=== PATIENT | male | born 1955 ===

== ENCOUNTER 2021-08-19 15:36 | Emergency (ER) | payer MEDICARE ==
[2021-08-19] MEDS ORDERED: Sodium Chloride 0.9% 10 ML Syringe FLUSH PRN (15:41)
[2021-08-19] MEDS ORDERED: Sodium Chloride 0.9% 1,000 ML IV ONE (15:41)
[2021-08-19 16:23] LABS: BICARBONATE,VENOUS 24 mmol/L (23-28); O2 DELIVERY DEVICE NASAL CANNULA; O2 SATURATION VENOUS 59 %; PCO2 VENOUS 39 mmHG (41-51); PO2 VENOUS 31 mmHG
[2021-08-19 16:31] LABS: ANION GAP 17.3 meq/L (7-15); CHLORIDE,CL 97 mmol/L (98-107); SODIUM,NA 137 mmol/L (136-145)
[2021-08-19 16:43] LABS: RESPIRATORY SYNCYTIAL VIR NAA NEGATIVE (NEGATIVE)
[2021-08-19 16:47] LABS: CORONAVIRUS COVID-19 NAA POSITIVE (NEGATIVE)
[2021-08-19] MEDS ORDERED: Iopamidol 755 Mg/ML 100 ML Bottle IVPUSH STA (16:51)
[2021-08-19] MEDS ORDERED: REMDESIVIR 200 MG in Sodium Chloride 0.9% 250 ML IV ONE (16:55)
[2021-08-19] MEDS ORDERED: Dexamethasone 10 MG/ML SDV IVPUSH ONE (16:55)
[2021-08-19] MEDS ORDERED: Albuterol/Ipratropium 3.0-0.5 MG/3 ML Neb Soln ONE (17:57)
[2021-08-19] MEDS ORDERED: LORazepam 2 MG/ML SDV IVPUSH ONE ×2 (18:09)
[2021-08-19] MEDS ORDERED: Morphine 2 MG/ML SYRINGE IVPUSH ONE (18:30)
[2021-08-19] MEDS ORDERED: Ondansetron 4 MG/2 ML SDV IVPUSH ONE (18:30)
== END 2021-08-19 19:15 ==
LOC: LL.ED 15:36
DX: J96.01 Acute respiratory failure with hypoxia (principal); U07.1 COVID-19
CPT/HCPCS: 0241U; 36415; 71045; 71275; 80053; 81001; 82248; 82803; 83605; 85025; 85379; 86140; 87040; 94660; 96365; 96375; 99285; 99285-25; J1100; J2060; J2270; J2405; J7030; J7050; J7620-GY; Q9967